=== PATIENT | male | born 1975 | race Caucasian/White ===

== ENCOUNTER 2017-02-26 18:56 | Emergency (ER) | payer OTHER ==
[~2017-02-26] VITALS: Ht 175.3 cm; Wt 91.0 kg
[2017-02-26] MEDS ORDERED: HYDROmorphone HCL 1 MG/ML SYRINGE (J1170) As Ordered ONE (19:09)
[2017-02-26] MEDS ORDERED: HYDROmorphone HCL 1 MG/ML SYRINGE (J1170) IV ONE ×2 (19:15→20:15)
--- NOTE | 2017-02-26 21:20 | REPUSA ---
Clinical history: Pain, swelling. Findings: The left common femoral, superficial femoral, popliteal, and other deep venous structures c ompress normally and demonstrate normal color Doppler flow. Normal venous waveforms with augmentation are seen. Impression: No evidence of deep vein thrombosis in the left femoral popliteal venous system.
[2017-02-26] MEDS ORDERED: NORCO 5/325MG TABLET (BULK FOR ED) PO ONE (21:45)
[2017-02-26 21:47] VITALS: BP 157/91
--- NOTE | 2017-02-27 07:17 | REP ---
AP pelvis single view: There are no comparisons. No pelvic fracture is identified. The sacroiliac articulations and right and left hip articulations are unremarkable. Clothing artifacts are superimposed. Impression: No pelvic fracture. Signed by Pedro Arizmendi MD 02/27/2017 07:08 A
--- NOTE | 2017-02-27 07:18 | REP ---
Bilateral femurs: Right femur four views: Mineralization is normal. There is no fracture or dislocation. There is a small calcification lateral to the acetabular roof, likely degenerative ligamentous calcification. There are no calcifications or foreign bodies. There are clothing artifacts. Impression: Essentially negative right femur. Left femur four views: There is no fracture or dislocation. Mineralization is normal. There are no calcifications or foreign bodies. There are superimposed clothing artifacts. Sign taking Signed by Pedro Arizmendi MD 02/27/2017 07:10 A
--- NOTE | 2017-02-27 07:21 | REP ---
Bilateral tibia-fibula: Left tibia-fibula four views: There is no fracture or dislocation. Mineralization is normal. There is a metallic density projected within the soft tissues posteriorly, superiorly and metallic density projected within gowning / clothing posteriorly inferiorly, likely foreign bodies. Right sided tibia-fibula four views: Mineralization is normal. There is no fracture or dislocation. There are no calcifications or foreign bodies. Impression: Negative right tibia-fibula. Signed by Pedro Arizmendi MD 02/27/2017 07:13 A
== END 2017-02-26 22:27 | disposition home or self-care (01) ==
LOC: M ED 18:56 → EDBD 18:56 → M ED 22:27
DX: S80.01XA Contusion of right knee, initial encounter (principal); S70.12XA Contusion of left thigh, initial encounter; V09.20XA Pedestrian injured in traffic accident involving unspecified motor vehicles, initial encounter; Y92.410 Unspecified street and highway as the place of occurrence of the external cause; Y93.89 Activity, other specified; Y99.9 Unspecified external cause status; F17.200 Nicotine dependence, unspecified, uncomplicated
CPT/HCPCS: 72170; 73552; 73590; 93971; 96374; 96376; 99284; J1170

== ENCOUNTER 2018-11-06 23:54 | Emergency (ER) | payer OTHER ==
[~2018-11-06] VITALS: Ht 175.3 cm; Wt 93.2 kg
[2018-11-07] MEDS ORDERED: EFFE150C2 PO (00:10)
[2018-11-07] MEDS ORDERED: BACLOFEN 10 MG TAB PO ONE (00:30)
[2018-11-07] MEDS ORDERED: KETOROLAC 60 MG/2 ML VIAL (J1885) IM ONE (00:30)
[2018-11-07] MEDS ORDERED: GABAPENTIN 300 MG CAP PO ONE (00:30)
[2018-11-07] MEDS ORDERED: KETO10TAB PO (01:28)
[2018-11-07] MEDS ORDERED: BACL1TAB8 PO (01:28)
[2018-11-07 02:06] VITALS: BP 123/79
== END 2018-11-07 01:38 | disposition home or self-care (01) ==
LOC: M ED 23:54
DX: M54.41 Lumbago with sciatica, right side (principal); Z79.899 Other long term (current) drug therapy; F17.210 Nicotine dependence, cigarettes, uncomplicated
CPT/HCPCS: 96372; 99283; J1885

== ENCOUNTER 2023-09-22 17:25 | Emergency (ER) | payer OTHER ==
[~2023-09-22 17:25] MED LIST: BACL1TAB8 PO; EFFE150C3 PO; KETO10TAB PO
[2023-09-22] MEDS ORDERED: LISI2.5T9 PO (17:36)
[2023-09-22] MEDS: ACETAMINOPHEN TAB 650MG DOSE (2X325MG) PO ONE (18:20)
[2023-09-22] MEDS: ONDANSETRON 4MG 2ML VIAL IV ONE (18:20)
[2023-09-22] MEDS: NS 3,200 ML in IV 1 EA IV ONE (18:21)
[2023-09-22 18:30] LABS: BASO % 0.3 % (0.0-1.0); EOS % 0.1 % (0.0-3.0); HEMATOCRIT 46.4 % (42.0-52.0); HEMOGLOBIN 15.7 g/dl (13.5-17.5); LYMPH # 0.9 10^3/uL (1.5-5.0); LYMPH % 12.8 % (24.0-44.0); MEAN CORPUSCULAR HGB CONC 33.8 g/dl (32.0-36.5); MEAN CORPUSCULAR VOLUME 91.5 fl (80.0-96.0); MONO # 1.1 10^3/uL (0.0-0.8); MONO % 14.9 % (2.0-8.0); NEUTROPHILS # 5.2 10^3/uL (1.5-8.5); NEUTROPHILS % 71.5 % (36.0-66.0); PLATELET COUNT, AUTOMATED 191 10^3/uL (150-450); RED BLOOD COUNT 5.07 10^6/uL (4.30-6.10); WHITE BLOOD COUNT 7.3 10^3/uL (4.0-10.0)
[2023-09-22 18:44] LABS: PROTHROMBIN TIME 12.9 SECONDS (12.5-14.5)
[2023-09-22 18:45] LABS: PARTIAL THROMBOPLASTIN TIME 27.9 SECONDS (24.8-34.2)
[2023-09-22 18:54] LABS: ALBUMIN 3.3 G/DL (3.2-5.2); ALKALINE PHOSPHATASE 109 U/L (46-116); ALT/SGPT 32 U/L (7.0-40); AST/SGOT 15 U/L (<34); BILIRUBIN,DIRECT 0.1 MG/DL (<0.4); BILIRUBIN,TOTAL 0.4 MG/DL (0.3-1.2); BLOOD UREA NITROGEN 13 MG/DL (9-23); CALCIUM LEVEL 8.3 MG/DL (8.5-10.1); CARBON DIOXIDE LEVEL 24 MMOL/L (20-31); CHLORIDE LEVEL 105 MMOL/L (98-107); CREATININE FOR GFR 0.89 MG/DL (0.70-1.30); GLOMERULAR FILTRATION RATE > 60.0 (>60); GLUCOSE, FASTING 114 MG/DL (60-100); POTASSIUM SERUM 4.1 MMOL/L (3.5-5.1); SODIUM LEVEL 136 MMOL/L (136-145); TOTAL PROTEIN 6.4 G/DL (5.7-8.2)
[2023-09-22 19:05] LABS: PROCALCITONIN <0.04 ng/ml
[2023-09-22] MEDS: IBUPROFEN 600MG TAB PO ONE (19:14)
[2023-09-22] MEDS ORDERED: OSEL75CA PO (19:34)
[2023-09-22 19:52] VITALS: BP 137/83; TEMP 100.9; O2SAT 98
[2023-09-22] MEDS: OSELTAMIVIR PHOSPHATE 75 MG CAP (TAMIFLU) PO ONE (19:52)
== END 2023-09-22 19:54 | disposition home or self-care (01) ==
LOC: M ED 17:25
DX: J09.X2 Influenza due to identified novel influenza A virus with other respiratory manifestations (principal); I10 Essential (primary) hypertension; R00.0 Tachycardia, unspecified; F17.200 Nicotine dependence, unspecified, uncomplicated; Z79.811 Long term (current) use of aromatase inhibitors; Z79.899 Other long term (current) drug therapy
CPT/HCPCS: 71045; 80048; 80076; 83605; 84145; 85025; 85610; 85730; 86140; 87040; 87486; 87581; 87633; 87798; 93005; 93041; 94760; 96361; 96374; 99285; J2405

== ENCOUNTER 2024-02-12 08:07 | Day surgery (SDC) | payer OTHER ==
[~2024-02-12] VITALS: Ht 175.3 cm; Wt 102.1 kg
[~2024-02-12 08:07] MED LIST changes: +LISI10TA22 PO; +LISI2.5T9 PO; +NS 1,000 ML IV ONE; +OSEL75CA PO; +VENL150C43 PO
[2024-02-12] MEDS ORDERED: propofoL 200 MG/20 ML VIAL As Ordered ONE (08:58)
[2024-02-12] MEDS ORDERED: LIDOCAINE 2% 100MG/5ML SDV (FOR ANES.) As Ordered ONE (08:59)
[2024-02-12 09:30] VITALS: TEMP 97.1
[2024-02-12 09:45] VITALS: BP 117/56; O2SAT 98
== END 2024-02-12 09:53 | disposition home or self-care (01) ==
LOC: M OPP 08:07
PROVIDERS: ATTEND Internal Medicine Gastroenterology
DX: Z12.11 Encounter for screening for malignant neoplasm of colon (principal); K64.9 Unspecified hemorrhoids; I10 Essential (primary) hypertension; F17.200 Nicotine dependence, unspecified, uncomplicated; Z79.899 Other long term (current) drug therapy